=== PATIENT | male | born 1995 | race Caucasian/White ===

== ENCOUNTER 2017-07-13 17:35 | Emergency (ER) | payer BC ==
[~2017-07-13] VITALS: Ht 182.9 cm; Wt 83.1 kg
[2017-07-13 17:41] VITALS: Ht 182.9 cm; Wt 83.1 kg
[2017-07-13] MEDS ORDERED: SODIUM CHLORIDE 0.9% 1000ML 1,000 ML IV STA (18:12)
[2017-07-13] MEDS ORDERED: ACETAMINOPHEN 325 MG TAB PO STA (18:12)
[2017-07-13] MEDS ORDERED: KETOROLAC TROMETHAMINE 30 MG/ML VIAL IV STA (18:25)
--- NOTE | 2017-07-13 18:31 | EMERGENCY ROOM VISIT NOTE ---
History Report prepared by Avery: Amrit Mane Under the Supervision of: Dr. Ioana Cox M.D. First contact with patient: 18:10 Chief Complaint: FEVER Stated Complaint: 103.2 FEVER AND RISING History of Present Illness The patient is a 21 year old male who presents to the Emergency Room with complaints of fever that began this morning. He recorded his temperature at 103.2 F. He is also experiencing a sore throat. He states that he thinks this could be the beginnings of bronchitis because his girlfriend had it recently. He took ibuprofen 4 hours ago. He denies any abdominal pain, vomiting, or diarrhea. He denies any chest pain as well. He did not receive a flu shot this year. Source of History: patient Onset: this morning Position: other (Global) Symptom Intensity: 103.2 F Quality: other (Fever) Timing: waxes/wanes Associated Symptoms: + sorethroat, No chest pain, No vomiting, No abdominal pain, No diarrhea Review of Systems See HPI for pertinent positives & negatives. A total of 10 systems reviewed and were otherwise negative. Past Medical & Surgical Medical Problems: (1) No Known Active Medical Problems Family History Patient reports no known family medical history. Social History Smoking Status: Never Smoker Smokeless Tobacco Use: No Drug Use: none Marital Status: single Occupation Status: student Current/Historical Medications Scheduled Amoxicillin (Amoxil), 500 MG PO TID Allergies Coded Allergies: No Known Allergies (Unverified , 07/13/17) Physical Exam Vital Signs Date Time Temp Pulse Resp B/P (MAP) Pulse Ox O2 Delivery O2 Flow Rate FiO2 07/13/17 19:57 38.9 106 18 118/44 98 Room Air 07/13/17 18:36 117 07/13/17 17:41 38.0 130 18 120/63 96 Room Air Physical Exam Vital signs reviewed. General: Well-appearing male, in no significant distress. HEENT: No scleral icterus, PERRLA, neck supple. Posterior oropharynx has erythema and edema with possible exudate to the left tonsil. Atraumatic. Cardiovascular: Tachycardic rate and regular rhythm, no extra sounds. Pulmonary: Clear to auscultation bilaterally, normal work of breathing. Abdomen: Soft, nontender, nondistended, positive bowel sounds. Musculoskeletal: Atraumatic, no peripheral edema. Neurologic: Patient awake alert and oriented x 3, no meningeal signs. Skin: Warm, dry, no rash Medical Decision & Procedures ER Provider Diagnostic Interpretation: Radiology results as stated below per my review and radiologist interpretation: CHEST ONE VIEW PORTABLE CLINICAL HISTORY: fever, cough COMPARISON STUDY: No previous studies for comparison. FINDINGS: The cardiac and mediastinal contours are normal. There is no evidence of focal pulmonary consolidation. There is no evidence of failure. No pleural effusions are visualized.[ The examination was obtained in apical lordotic fashion. IMPRESSION: No active disease in the chest. Electronically signed by: Ronald Knox M.D. 07/13/2017 6:45 PM Dictated Date/Time: 07/13/2017 6:45 PM Laboratory Results 07/13/17 18:28 Red Blood Count 5.01, Mean Corpuscular Volume 84.8, Mean Corpuscular Hemoglobin 27.7, Mean Corpuscular Hemoglobin Concent 32.7, Mean Platelet Volume 11.1, Neutrophils (%) (Auto) 86.1, Lymphocytes (%) (Auto) 5.5, Monocytes (%) (Auto) 8.0, Eosinophils (%) (Auto) 0.0, Basophils (%) (Auto) 0.1, Neutrophils # (Auto) 14.79, Lymphocytes # (Auto) 0.95, Monocytes # (Auto) 1.38, Eosinophils # (Auto) 0.00, Basophils # (Auto) 0.02 07/13/17 18:28 Test 07/13/17 18:28 White Blood Count 17.20 K/uL (4.8-10.8) Red Blood Count 5.01 M/uL (4.7-6.1) Hemoglobin 13.9 g/dL (14.0-18.0) Hematocrit 42.5 % (42-52) Mean Corpuscular Volume 84.8 fL (80-100) Mean Corpuscular Hemoglobin 27.7 pg (25-34) Mean Corpuscular Hemoglobin Concent 32.7 g/dl (32-36) Platelet Count 187 K/uL (130-400) Mean Platelet Volume 11.1 fL (7.4-10.4) Neutrophils (%) (Auto) 86.1 % Lymphocytes (%) (Auto) 5.5 % Monocytes (%) (Auto) 8.0 % Eosinophils (%) (Auto) 0.0 % Basophils (%) (Auto) 0.1 % Neutrophils # (Auto) 14.79 K/uL (1.4-6.5) Lymphocytes # (Auto) 0.95 K/uL (1.2-3.4) Monocytes # (Auto) 1.38 K/uL (0.11-0.59) Eosinophils # (Auto) 0.00 K/uL (0-0.5) Basophils # (Auto) 0.02 K/uL (0-0.2) RDW Standard Deviation 38.4 fL (36.4-46.3) RDW Coefficient of Variation 12.5 % (11.5-14.5) Immature Granulocyte % (Auto) 0.3 % Immature Granulocyte # (Auto) 0.06 K/uL (0.00-0.02) Anion Gap 7.0 mmol/L (3-11) Est Creatinine Clear Calc Drug Dose 118.6 ml/min Estimated GFR () 112.2 Estimated GFR (Non- 96.8 BUN/Creatinine Ratio 12.5 (10-20) Calcium Level 9.4 mg/dl (8.5-10.1) Total Bilirubin 0.5 mg/dl (0.2-1) Direct Bilirubin 0.1 mg/dl (0-0.2) Aspartate Amino Transf (AST/SGOT) 8 U/L (15-37) Alanine Aminotransferase (ALT/SGPT) 22 U/L (12-78) Alkaline Phosphatase 96 U/L (45-117) Total Protein 8.0 gm/dl (6.4-8.2) Albumin 4.2 gm/dl (3.4-5.0) Influenza Type A (RT-PCR) Neg for Influ A (NEG) Influenza Type A Antigen Neg for Influ A (NEG) Influenza Type B Antigen Neg for Influ B (NEG) Influenza Type B (RT-PCR) Neg for Influ B (NEG) Date/Time Source Procedure Growth Status 07/13/17 18:28 Throat Group A Streptococcus Screen - Final SPECIMEN POSITIVE FOR GROUP A BETA ST... Complete 07/13/17 18:28 Throat Group A Streptococcus Screen (NAT) - Final Complete Laboratory results per my review. Medications Administered Medications (Trade) Dose Ordered Sig/Davin Route Start Time Stop Time Status Last Admin Dose Admin Sodium Chloride 1,000 ml @ 999 mls/hr Q1H1M STAT IV 07/13/17 18:12 07/13/17 19:12 DC 07/13/17 18:35 999 MLS/HR Acetaminophen (Tylenol Tab) 650 mg NOW STAT PO 07/13/17 18:12 07/13/17 18:14 DC 07/13/17 18:35 650 MG Ketorolac Tromethamine (Toradol Inj) 30 mg NOW STAT IV 07/13/17 18:25 07/13/17 18:26 DC 07/13/17 18:34 30 MG Amoxicillin (Amoxil Cap) 500 mg NOW STAT PO 07/13/17 18:37 07/13/17 18:38 DC 07/13/17 19:47 500 MG ED Course 1810: Past medical records reviewed. The patient was evaluated in room B3. A complete history and physical examination was performed. Medical Decision DDx: Influenza, other viral illness, pneumonia, urinary tract infection, metabolic abnormality, medication effect, cellulitis, meningitis, intra-abdominal source. This pt was evaluated and appeared to be in no distress. He is noted to be febrile and tachycardic. Pt was given oral tylenol, IV toradol and hydrated with NSS. Rapid strep is positive. Flu swab is negative. Lab work was fairly unrevealing. Pt was feeling much improved. He was advised on symptomatic care. Amoxicillin 500 mg TID x 10 days was started in the ED. Pt was referred to PCP in f/u, he will return to the ED for worsening of symptoms or any medical concerns. Medication Reconcilliation Current Medication List: was personally reviewed by me Blood Pressure Screening Patient's blood pressure: Normal blood pressure Blood pressure disposition: Did not require urgent referral Impression Primary Impression: Strep pharyngitis Scribe Attestation The scribe's documentation has been prepared under my direction and personally reviewed by me in its entirety. I confirm that the note above accurately reflects all work, treatment, procedures, and medical decision making performed by me. Departure Information Dispostion Home / Self-Care Prescriptions Amoxicillin (AMOXIL) 500 Mg Cap 500 MG PO TID, #30 CAP Prov: Ioana Cox M.D. 07/13/17 Referrals No Doctor Assigned [facility] Forms HOME CARE DOCUMENTATION FORM, IMPORTANT VISIT INFORMATION Patient Instructions My [facility], Strep Throat Additional Instructions Diagnosis: Strep pharyngitis Drink plenty of clear fluids. Tylenol 650 mg every 6 hours as needed for pain or fever. Ibuprofen 600 mg every 6 hours as needed for pain or fever with food. Amoxicillin 500 mg 3 times a day for 10 days. Follow-up with your physician this week for reevaluation. Return to the ER for worsening of symptoms or any medical concerns.
[2017-07-13] MEDS ORDERED: AMOXICILLIN 250 MG CAP PO STA (18:37)
--- NOTE | 2017-07-13 18:46 | DIAGNOSTIC IMAGING REPORT ---
CHEST ONE VIEW PORTABLE CLINICAL HISTORY: fever, cough COMPARISON STUDY: No previous studies for comparison. FINDINGS: The cardiac and mediastinal contours are normal. There is no evidence of focal pulmonary consolidation. There is no evidence of failure. No pleural effusions are visualized.[ The examination was obtained in apical lordotic fashion. IMPRESSION: No active disease in the chest. Electronically signed by: Ronald Knox M.D. 07/13/2017 6:45 PM Dictated Date/Time: 07/13/2017 6:45 PM
[2017-07-13 18:53] LABS: BASO % 0.1 %; BASO ABS # 0.02 K/uL (0-0.2); COMPLETE YES; HEMATOCRIT 42.5 % (42-52); IG% 0.3 %; LYMPH % 5.5 %; LYMPH ABS # 0.95 K/uL (1.2-3.4); MEAN CELL VOLUME 84.8 fL (80-100); MEAN CORPUSCULAR HEMOGLOBIN 27.7 pg (25-34); MEAN CORPUSCULAR HGB CONC 32.7 g/dl (32-36); MEAN PLATELET VOLUME 11.1 fL (7.4-10.4); NEUT % 86.1 %; PLATELET COUNT 187 K/uL (130-400); RED BLOOD COUNT 5.01 M/uL (4.7-6.1)
[2017-07-13 19:16] LABS: BUN/CREATININE RATIO 12.5 (10-20); CALCIUM 9.4 mg/dl (8.5-10.1); CREATININE 1.1 mg/dl (0.60-1.40)
[2017-07-13] MEDS ORDERED: AMOX500C3 PO ×2 (19:27→19:39)
[2017-07-13 19:57] VITALS: BP 118/44; PULSE 106; TEMP 38.9; O2SAT 98
[2017-07-13 20:44] LABS: INFLUENZA A PCR Neg for Influ A (NEG); INFLUENZA B PCR Neg for Influ B (NEG)
== END 2017-07-13 19:57 | disposition home or self-care (01) ==
LOC: C.EDB 17:37
DX: J02.0 Streptococcal pharyngitis (principal)